=== PATIENT | male | born 1940 | race Caucasian/White ===

== ENCOUNTER → 2020-05-06 | Outpatient (CLI) | payer OTHER | LOC: LABNPT 16:43 | PROVIDERS: ATTEND Nurse Practitioner Family | DX: Z20.828 Contact with and (suspected) exposure to other viral communicable diseases (principal) | CPT/HCPCS: 87635 ==

== ENCOUNTER → 2020-07-01 | Outpatient (CLI) | payer OTHER | LOC: LABNPT 15:08 | PROVIDERS: ATTEND Nurse Practitioner Family | DX: Z20.822 Contact with and (suspected) exposure to COVID-19 (principal) | CPT/HCPCS: 87635 ==

== ENCOUNTER → 2020-08-31 | Outpatient (CLI) | payer MEDICARE ==
--- NOTE | 2020-08-31 11:33 | Diagnostic Imaging Report ---
PROCEDURE: US right lower extremity venous. TECHNIQUE: Multiple Real-time grayscale images were obtained over the right lower extremity in various projections. Additional spectral analysis and color Doppler duplex images were also obtained. INDICATION: Swelling. FINDINGS: Right lower extremity femoropopliteal system is widely patent and show normal color flow, normal waveforms, and normal compressibility. No deep or superficial thrombus. No mass or fluid collection is demonstrated. IMPRESSION: Normal negative unilateral right lower extremity venous Doppler and ultrasound exam. Dictated by: Dictated on workstation # [id number]
== END ==
LOC: RAD 09:44
PROVIDERS: ATTEND Family Medicine
DX: R22.41 Localized swelling, mass and lump, right lower limb (principal)

== ENCOUNTER 2020-10-18 15:28 | Emergency (ER) | payer MEDICARE ==
[~2020-10-18] VITALS: Ht 175 cm; Wt 72.0 kg
--- NOTE | 2020-10-18 16:21 | ED General ---
General Chief Complaint: Neuro-Stroke Like Symptoms Stated Complaint: TROUBLE WALKING Nursing Triage Note: ARRIVED VIA WC TO ROOM 08. [facility] STATES AT APPX 1300 THEY NOTICED HIM LEANING TOWARDS THE LEFT SIDE WHEN HE WALKS AND WEAKNESS ON THE LEFT SIDE. UPON ENTERING THE ROOM DAUGHTER THOUGHT THEY HAD SAID RIGHT. Nursing Sepsis Screen: No Definite Risk Source of Information: Patient, Caregiver, Family History of Present Illness Date Seen by Provider: October 18, 2020 Time Seen by Provider: 16:00 Initial Comments Patient is an 80-year-old male who presents to the emergency department today with a chief complaint from the snf of not acting quite like himself and when he was ambulating he was leaning towards his left side. There was report from his nurse Sujata at [facility] that he had some decreased supervisor winter on the left side. The patient is very amiable, nontoxic- appearing, pleasant and alert. He has no complaints at this time. Patient denies headache, vision changes. He has no obvious speech difficulties or swallowing difficulties. He is able to follow commands. He denies any recent illnesses. The snf states that he did not sleep very well last night at all and that he frequently gets his days and nights mixed up and will sleep throughout the day and stay up most of the night. They report that he has had a 13 pound weight loss over the course of the last month. No recent illnesses. He denies any bowel or bladder issues. He does have significant dementia per his daughter who is at the bedside. Review of systems, keeping in mind his dementia, is negative except as stated above. Timing/Duration: 1 Day Associated Systoms: Denies Symptoms Allergies and Home Medications Patient Home Medication List Home Medication List Reviewed: Yes Review of Systems Review of Systems Constitutional: see HPI EENTM: no symptoms reported Respiratory: no symptoms reported Cardiovascular: no symptoms reported Gastrointestinal: no symptoms reported Genitourinary: no symptoms reported Musculoskeletal: no symptoms reported Skin: no symptoms reported Psychiatric/Neurological: No Symptoms Reported All Other Systems Reviewed Negative Unless Noted: Yes Past [id number] Hx Patient Social History Alcohol Use: Denies Use Smoking Status: Never a Smoker Recent Infectious Disease Expo: No Past Medical History Surgeries: Yes Orthopedic Respiratory: No Cardiac: Yes High Cholesterol, Hypertension Neurological: Yes Dementia, Parkinson's Disease Genitourinary: Yes UTI-Chronic Gastrointestinal: Yes Gastroesophageal Reflux Endocrine: No Cancer: Yes Skin Psychosocial: Yes Anxiety Integumentary: No Physical Exam Vital Signs Vital Signs - First Documented 10/18/20 15:40 Temp 36.0 Pulse 80 Resp 16 B/P (MAP) 139/67 (91) Pulse Ox 92 O2 Delivery Room Air Capillary Refill : Less Than 3 Seconds Height, Weight, BMI Height: '" Weight: lbs. oz. kg; 23.00 BMI Method: General Appearance: No Apparent Distress, WD/WN, Other (Pleasant, conversational, no acute distress) Eyes: Bilateral Eye Normal Inspection, Bilateral Eye PERRL, Bilateral Eye EOMI HEENT: PERRL/EOMI, Normal ENT Inspection Neck: Normal Inspection Respiratory: Lungs Clear, Normal Breath Sounds, No Accessory Muscle Use Cardiovascular: Regular Rate, Rhythm, Normal Peripheral Pulses, Systolic Murmur (Harsh systolic murmur heard throughout the precordium) Gastrointestinal: Non Tender, Soft Extremity: Normal Capillary Refill, Normal Inspection, Normal Range of Motion, Non Tender, No Calf Tenderness Neurologic/Psychiatric: Alert, No Motor/Sensory Deficits, Normal Mood/Affect, ag equipment field service technician II-XII Norm as Tested, Other (Gait appears strong and steady without ataxia) Skin: Normal Color, Warm/Dry Progress/Results/Core Measures Suspected Sepsis Recent Fever Within 48 Hours: No Infection Criteria Present: None New/Unexplained Altered Menta: No Sepsis Screen: No Definite Risk SIRS Temperature: Pulse: 80 Respiratory Rate: 16 Laboratory Tests 10/18/20 16:25: White Blood Count 6.8 Blood Pressure 139 /67 Mean: 91 Laboratory Tests 10/18/20 16:25: Creatinine 1.04, Platelet Count 197 Results/Orders Lab Results Laboratory Tests Test 10/18/20 14:15 10/18/20 16:25 Range/Units Urine Color DARK YELLOW Urine Clarity CLEAR Urine pH 5.5 5-9 Urine Specific Sumner 1.025 H 1.016-1.022 Urine Protein NEGATIVE NEGATIVE Urine Glucose (UA) NEGATIVE NEGATIVE Urine Ketones NEGATIVE NEGATIVE Urine Nitrite NEGATIVE NEGATIVE Urine Bilirubin NEGATIVE NEGATIVE Urine Urobilinogen 0.2 < = 1.0 MG/DL Urine Leukocyte Esterase NEGATIVE NEGATIVE Urine RBC (Auto) NEGATIVE NEGATIVE Urine RBC NONE /HPF Urine WBC NONE /HPF Urine Squamous Epithelial Cells RARE /HPF Urine Crystals NONE /LPF Urine Bacteria NEGATIVE /HPF Urine Casts NONE /LPF Urine Mucus NEGATIVE /LPF Urine Culture Indicated NO White Blood Count 6.8 4.3-11.0 10^3/uL Red Blood Count 3.93 L 4.30-5.52 10^6/uL Hemoglobin 11.8 L 13.3-17.7 g/dL Hematocrit 36 L 40-54 % Mean Corpuscular Volume 90 80-99 fL Mean Corpuscular Hemoglobin 30 25-34 pg Mean Corpuscular Hemoglobin Concent 33 32-36 g/dL Red Cell Distribution Width 12.7 10.0-14.5 % Platelet Count 197 130-400 10^3/uL Mean Platelet Volume 10.9 9.0-12.2 fL Immature Granulocyte % (Auto) 0 % Neutrophils (%) (Auto) 64 42-75 % Lymphocytes (%) (Auto) 24 12-44 % Monocytes (%) (Auto) 9 0-12 % Eosinophils (%) (Auto) 2 0-10 % Basophils (%) (Auto) 1 0-10 % Neutrophils # (Auto) 4.4 1.8-7.8 10^3/uL Lymphocytes # (Auto) 1.6 1.0-4.0 10^3/uL Monocytes # (Auto) 0.6 0.0-1.0 10^3/uL Eosinophils # (Auto) 0.1 0.0-0.3 10^3/uL Basophils # (Auto) 0.0 0.0-0.1 10^3/uL Immature Granulocyte # (Auto) 0.0 0.0-0.1 10^3/uL Sodium Level 141 135-145 MMOL/L Potassium Level 4.4 3.6-5.0 MMOL/L Chloride Level 107 98-107 MMOL/L Carbon Dioxide Level 24 21-32 MMOL/L Anion Gap 10 5-14 MMOL/L Blood Urea Nitrogen 26 H 7-18 MG/DL Creatinine 1.04 0.60-1.30 MG/DL Estimat Glomerular Filtration Rate > 60 BUN/Creatinine Ratio 25 Glucose Level 101 70-105 MG/DL Calcium Level 9.0 8.5-10.1 MG/DL My Orders Orders - BABAK DUMAS MD Cbc With Automated Diff (10/18/20 16:08) Basic Metabolic Panel (10/18/20 16:08) Ua Culture If Indicated (10/18/20 16:08) Vital Signs/I&O 10/18/20 15:40 Temp 36.0 Pulse 80 Resp 16 B/P (MAP) 139/67 (91) Pulse Ox 92 O2 Delivery Room Air Capillary Refill : Less Than 3 Seconds Blood Pressure Mean: 91 Progress Note : Time: 17:00 Progress Note Patient's laboratory studies have been evaluated, CBC, chemistry and urinalysis. All of these are within normal limits. The patient has no complaints. He is pleasantly confused. His daughter remains at the bedside and is advised of his lab results. She is comfortable with discharge to home. All questions are sought and answered. Patient will be sent back to [facility] and rehab to resume prior medication and care orders. Departure Impression Primary Impression: Well adult exam Disposition: HOME, SELF-CARE Condition: Stable Departure-Patient Inst. Decision time for Depature: 17:01 Referrals: YAN GRECO DO (PCP/Family) Primary Care Physician Patient Instructions: Preventing Falls in the Older Adult Add. Discharge Instructions: Resume prior medications as directed. Follow-up with Dr. GRECO. Return to the emergency room for any new, concerning or emergent complaints. BABAK DUMAS MD October 18, 2020 16:21
[2020-10-18 16:22] LABS: BILIRUBIN,URINE NEGATIVE (NEGATIVE); CLARITY,URINE CLEAR; COLOR,URINE DARK YELLOW; GLUCOSE, URINE (UA) NEGATIVE (NEGATIVE); KETONES,URINE NEGATIVE (NEGATIVE); LEUKOCYTE ESTERASE ,URINE NEGATIVE (NEGATIVE); NITRITE,URINE NEGATIVE (NEGATIVE); PH,URINE 5.5 (5-9); PROTEIN,URINE NEGATIVE (NEGATIVE)
[2020-10-18 16:28] LABS: BACTERIA,URINE NEGATIVE /HPF; SQUAMOUS EPITHELIAL CELL,UR RARE /HPF
[2020-10-18 16:30] LABS: BASOPHILS % (AUTO) 1 % (0-10); EOSINOPHILS # (AUTO) 0.1 10^3/uL (0.0-0.3); EOSINOPHILS % (AUTO) 2 % (0-10); HEMATOCRIT 36 % (40-54); HEMOGLOBIN 11.8 g/dL (13.3-17.7); LYMPHOCYTES # (AUTO) 1.6 10^3/uL (1.0-4.0); LYMPHOCYTES % (AUTO) 24 % (12-44); MEAN CORPUSCULAR HEMOGLOBIN 30 pg (25-34); MEAN CORPUSCULAR HGB CONC 33 g/dL (32-36); MEAN CORPUSCULAR VOLUME 90 fL (80-99); MEAN PLATELET VOLUME 10.9 fL (9.0-12.2); MONOCYTES # (AUTO) 0.6 10^3/uL (0.0-1.0); MONOCYTES % (AUTO) 9 % (0-12); NEUTROPHILS # (AUTO) 4.4 10^3/uL (1.8-7.8); NEUTROPHILS % (AUTO) 64 % (42-75); PLATELET COUNT 197 10^3/uL (130-400); WHITE BLOOD COUNT 6.8 10^3/uL (4.3-11.0)
[2020-10-18 16:41] LABS: CHLORIDE 107 MMOL/L (98-107); POTASSIUM 4.4 MMOL/L (3.6-5.0); SODIUM 141 MMOL/L (135-145)
[2020-10-18 16:43] LABS: GLUCOSE 101 MG/DL (70-105)
[2020-10-18 16:44] LABS: CARBON DIOXIDE 24 MMOL/L (21-32)
[2020-10-18 16:47] LABS: CREATININE SERUM 1.04 MG/DL (0.60-1.30); GFR ESTIMATED > 60
[2020-10-18 16:48] LABS: BUN/CREATININE RATIO 25
[2020-10-18 17:05] VITALS: BP 141/77
== END 2020-10-18 17:05 | disposition home or self-care (01) ==
LOC: EDUNIT# 15:28 → ER 15:30
DX: Z00.00 Encounter for general adult medical examination without abnormal findings (principal); I10 Essential (primary) hypertension
CPT/HCPCS: 36415; 80048; 81000; 85025